=== PATIENT | female | born 2000 | race Caucasian/White ===

== ENCOUNTER 2025-03-10 09:56 | Emergency (ER) | payer BC, OTHER ==
[2025-03-10] MEDS ORDERED: Sodium Chloride 0.9% 10 ML Syringe FLUSH PRN (10:05)
[2025-03-10 10:28] LABS: BASOPHILS ABSOLUTE AUTO 0.0 x10^3/uL (0.0-0.2); BASOPHILS PERCENT AUTO 0.3 % (0.2-1.2); EOSINOPHILS ABSOLUTE AUTO 0.0 x10^3/uL (0.0-0.5); EOSINOPHILS PERCENT AUTO 0.2 % (0.0-4.0); IMMATURE GRAN ABSOLUTE AUTO 0.02 x10^3/uL (0.00-0.07); IMMATURE GRAN PERCENT AUTO 0.10 % (0.00-0.43); LYMPHOCYTES ABSOLUTE AUTO 1.2 x10^3/uL (1.0-4.8); LYMPHOCYTES PERCENT AUTO 8.5 % (25.0-50.0); MONOCYTES ABSOLUTE AUTO 0.4 x10^3/uL (0.0-0.8); MONOCYTES PERCENT AUTO 3.1 % (2.0-11.0); NEUTROPHILS ABSOLUTE AUTO 12.0 x10^3/uL (1.8-7.7); NEUTROPHILS PERCENT AUTO 87.8 % (50.0-80.0); PLATELET COUNT,PLT 233 x10^3/uL (130-400); RED BLOOD CELL COUNT 5.14 x10^6/uL (4.00-5.50); WHITE BLOOD CELL COUNT,WBC 13.7 x10^3/uL (4.0-10.0)
[2025-03-10] MEDS: Ondansetron 4 MG/2 ML SDV IVPUSH ONE (10:28)
[2025-03-10 10:48] LABS: A/G RATIO 1.22; ALANINE AMINOTRANSFERASE,ALT 24 U/L (14-59); ASPARTATE AMNIOTRANSFERASE,AST 15 U/L (15-37); BILIRUBIN TOTAL 0.6 mg/dL (0.2-1.0); BLOOD UREA NITROGEN,BUN 9 mg/dL (7-18); CARBON DIOXIDE,CO2 25 mmol/L (21-32); CHLORIDE,CL 106 mmol/L (98-107); CREATININE 1.0 mg/dL (0.55-1.02); EST CRCL DRUG DOSING (CG) 69.20 mL/min; ESTIMATED GFR 81 mL/min (>=60); GLUCOSE RANDOM 122 mg/dL (70-99); POTASSIUM,K 3.7 mmol/L (3.5-5.1); PROTEIN TOTAL,TP 7.1 g/dL (6.4-8.2); SODIUM,NA 143 mmol/L (136-145)
[2025-03-10 11:20] LABS: AMPHETAMINES SCREEN, URINE NEGATIVE (NEGATIVE); BUPRENORPHINE SCREEN,URINE NEGATIVE (NEGATIVE); COCAINE METABOLITES,URINE NEGATIVE (NEGATIVE); METHADONE SCREEN, URINE NEGATIVE (NEGATIVE); METHAMPHETAMINE SCREEN, URINE NEGATIVE (NEGATIVE); OXYCODONE SCREEN,URINE NEGATIVE (NEGATIVE); PCP SCREEN,URINE NEGATIVE (NEGATIVE); THC SCREEN,URINE 50 NG/ML POSITIVE (NEGATIVE)
[2025-03-10 11:20] LABS: APPEARANCE,URINE SLIGHTLY CLOUDY (CLEAR); GLUCOSE,URINE NEGATIVE (NEGATIVE); OCCULT BLOOD,URINE LARGE (NEGATIVE)
[2025-03-10 11:27] LABS: SQUAMOUS EPITHELIAL CELLS,UR MANY /HPF (NOT SEEN)
[2025-03-10] MEDS: Promethazine 12.5 MG in Sodium Chloride 0.9% 100 ML IV ONE (11:28)
[2025-03-10] MEDS: Iopamidol 612 MG/ML 100 ML Bottle IVPUSH ONE (12:02)
== END 2025-03-10 13:43 | disposition short-term general hospital (02) ==
LOC: VM.ED 09:56
DX: Q43.0 Meckel's diverticulum (displaced) (hypertrophic) (principal); R11.2 Nausea with vomiting, unspecified
CPT/HCPCS: 74177; 80053; 80305-QW; 81001; 81025; 83690; 85025; 86140; 96361; 96365; 96367; 96375; 99284; 99285-25; J2270; J2405; J2543; J2550; J7030; Q9967